=== PATIENT | female | born 1960 | race Caucasian/White ===

== ENCOUNTER → 2017-10-27 | Outpatient (CLI) | payer OTHER | LOC: M.RAD 06:44 | DX: Z12.31 Encounter for screening mammogram for malignant neoplasm of breast (principal) ==

== ENCOUNTER → 2018-10-05 | Outpatient (CLI) | payer OTHER | LOC: M.RAD 09-29 10:00 | DX: Z12.31 Encounter for screening mammogram for malignant neoplasm of breast (principal) ==

== ENCOUNTER → 2018-12-12 | Outpatient (CLI) | payer OTHER ==
[~2018-12-12] MED LIST: AMLODIPINE BESY10 MG PO; C-10001000 MG PO; CRESTOR10 MG PO; FISH OIL 1,0001 EAC1 PO; PRED FORTE 1% EY5 M1 OPHTHALMIC; SPIRONOLACT/HCT1 TA1 PO; SYMBICORT160 MCG/4. INH; VITAMIN D3400 UNIT PO
== END ==
LOC: M.RAD 09:51
DX: M54.12 Radiculopathy, cervical region (principal); M54.16 Radiculopathy, lumbar region; M47.818 Spondylosis without myelopathy or radiculopathy, sacral and sacrococcygeal region; M43.22 Fusion of spine, cervical region; M43.27 Fusion of spine, lumbosacral region; Z98.1 Arthrodesis status

== ENCOUNTER → 2018-12-21 | Outpatient (CLI) | payer OTHER | LOC: M.MRI 12-12 11:34 | DX: M47.26 Other spondylosis with radiculopathy, lumbar region (principal); M47.22 Other spondylosis with radiculopathy, cervical region; M53.87 Other specified dorsopathies, lumbosacral region; M51.16 Intervertebral disc disorders with radiculopathy, lumbar region; M43.27 Fusion of spine, lumbosacral region; M48.07 Spinal stenosis, lumbosacral region; M48.061 Spinal stenosis, lumbar region without neurogenic claudication; M43.22 Fusion of spine, cervical region; M48.02 Spinal stenosis, cervical region ==

== ENCOUNTER → 2019-01-17 | Outpatient (CLI) | payer OTHER ==
[~2019-01-17] MED LIST changes: +ZANAFLEX4 MG PO
== END | disposition home or self-care (01) ==
LOC: M.PC 05:14
DX: M16.11 Unilateral primary osteoarthritis, right hip (principal); M25.551 Pain in right hip; M51.16 Intervertebral disc disorders with radiculopathy, lumbar region; M47.26 Other spondylosis with radiculopathy, lumbar region; G89.29 Other chronic pain; M50.10 Cervical disc disorder with radiculopathy, unspecified cervical region; Z98.890 Other specified postprocedural states; Z87.891 Personal history of nicotine dependence; Z88.8 Allergy status to other drugs, medicaments and biological substances; Z79.899 Other long term (current) drug therapy

== ENCOUNTER → 2019-01-31 | Outpatient (CLI) | payer OTHER | END | disposition home or self-care (01) | LOC: M.PC 05:28 | DX: M54.5 Low back pain (principal); M47.816 Spondylosis without myelopathy or radiculopathy, lumbar region; M51.36 Other intervertebral disc degeneration, lumbar region; M50.10 Cervical disc disorder with radiculopathy, unspecified cervical region; M47.22 Other spondylosis with radiculopathy, cervical region; Z98.890 Other specified postprocedural states; Z87.891 Personal history of nicotine dependence; Z88.8 Allergy status to other drugs, medicaments and biological substances; Z79.899 Other long term (current) drug therapy ==

== ENCOUNTER → 2019-02-07 | Outpatient (CLI) | payer OTHER | LOC: M.PC 04:54 | DX: M16.11 Unilateral primary osteoarthritis, right hip (principal); M51.16 Intervertebral disc disorders with radiculopathy, lumbar region; M47.26 Other spondylosis with radiculopathy, lumbar region; M50.13 Cervical disc disorder with radiculopathy, cervicothoracic region ==